=== PATIENT | female | born 1985 ===

== ENCOUNTER → 2019-01-23 21:23 | Outpatient (REF) | payer BC, SELFPAY ==
[2019-01-24 04:14] LABS: Free T3, Triiodothyronine Free 3.28 pg/mL (2.77-5.27); Free T4, Direct Thyroxine 1.32 ng/dL (0.78-2.19)
[2019-01-24 04:28] LABS: Thyroid Stimulating Hormone 1.44 uIU/mL (0.47-4.68)
[2019-01-24 06:03] LABS: Ferritin 12.2 ng/mL (6.27-137)
[2019-01-24 07:13] LABS: Hematocrit 43.3 % (36-46); Hemoglobin 14.2 g/dL (12.0-16.0); Mean Corpuscular HGB Conc 32.8 % (30-36); Mean Corpuscular Hemoglobin 29.1 PG (26-34); Mean Corpuscular Volume 88.6 fL (80-100); Platelet Count 296 X10^3/uL (150-400); Red Blood Cell Count 4.89 X10^6/uL (4.0-5.2); Red Cell Distribution Width 13.2 % (11.6-14.8); White Blood Cell Count 7.6 X10^3/uL (4.5-11.0)
[2019-01-24 07:14] LABS: Add Manual Diff / Slide Review YES
[2019-01-24 07:21] LABS: Neutrophils Absolute Manual 3800 /uL (3000-5900); Total Cells Counted 100
[2019-01-27 14:26] LABS: Vitamin B6 122.3 ng/mL (2.1-21.7)
[2019-01-27 17:12] LABS: Progesterone 0.7 ng/mL
[2019-02-02 11:17] LABS: Triiodothyronine T3 Reverse 23.6
== END ==
LOC: LAB 21:23
PROVIDERS: Visit Provider Acupuncturist
DX: N94.3 Premenstrual tension syndrome (principal); G47.9 Sleep disorder, unspecified
CPT/HCPCS: 36415; 82728; 84144; 84207; 84439; 84443; 84481; 84482; 85025